=== PATIENT | male | born 1970 | race Caucasian/White ===

== ENCOUNTER 2020-11-18 16:17 | Emergency (ER) | payer OTHER, SELFPAY ==
--- NOTE | ~2020-11-18 | CT_ITS ---
EXAMINATION: CT abdomen pelvis w con DATE: 11/18/2020 21:15 INDICATION: Right flank and testicle pain. TECHNIQUE: Computed tomography (CT) of the abdomen and pelvis was performed with 100 cc Omnipaque 350 intravenous contrast. The dose-length product was 438.05 mGy-cm. Automated exposure control and iter ative reconstruction technique were employed. COMPARISON: None. FINDINGS: Lung bases are unremarkable. Heart size normal. No significant pleural or pericardial effus ion. No significant vascular abnormality. No lymphadenopathy. There is a distal right ureteral stone measuring 4 mm with mild right hydronephrosis. There is delayed right nephrogram, consistent with obs truction. Mild right perinephric stranding. The liver, spleen, pancreas and right adrenal gland are unremarkable. There is nonspecific left adren al thickening. There are several small subcentimeter low-density lesions of the left kidney, too smal l to characterize, although likely benign. Gallbladder is present. Nonobstructive bowel gas pattern. Colonic diverticulosis without evidence for diverticulitis. Enlarged prostate gland. There are hydroc eles. There is nonobstructing right nephrolithiasis. IMPRESSION: 1. Distal right ureteral stone just proximal to the ureterovesical junction measuring 4 mm. Mild righ t hydroureteronephrosis with delayed nephrogram, consistent with obstruction. 2: Right nephrolithiasis. Reviewed, dictated and finalized at location A. IMPRESSION: 1. Distal right ureteral stone just proximal to the ureterovesical junction uriah suring 4 mm. Mild right hydroureteronephrosis with delayed nephrogram, consiste nt with obstruction. 2: Right nephrolithiasis.
[2020-11-18 16:48] VITALS: BP 155/86; PULSE 63; RESP 18; TEMP 37.9; O2SAT 99
[2020-11-18 17:17] LABS: Basophils Percent Auto 0.1 % (0.2-1.2); Hematocrit 45.1 % (42.0-52.0); Hemoglobin 14.7 g/dL (14.0-18.0); Immature Granulocyte Absolute 0.06 K/mm3 (0.00-0.031); Immature Granulocyte Percent A 0.4 % (0-0.5); Lymphocytes Absolute Auto 0.97 K/mm3 (0.9-3.2); Lymphocytes Percent Auto 6.9 % (18.3-44.2); Mean Corpuscular HGB Conc 32.6 g/dl (32-36); Mean Corpuscular Hemoglobin 31.5 pg (26-34); Mean Corpuscular Volume 96.6 fl (80-100); Mean Platelet Volume 10.2 fl (7.4-10.4); Monocytes Absolute Auto 1.1 K/mm3 (0.1-0.6); Monocytes Percent Auto 7.7 % (2.6-8.5); Neutrophils Percent Auto 84.9 % (45.5-73.1); Platelet Count Result 216 k/mm3 (150-375); Red Blood Count 4.67 M/mm3 (4.6-6.20); Red Cell Distribution Width 12.1 % (11.5-14.5); White Blood Count 14.2 K/mm3 (4.5-10.0)
[2020-11-18 17:22] LABS: Add Urine Microscopic? YES; Appearance Urine Clear (Clear); Bilirubin Urine Negative (Negative); Blood Urine 2+ (Negative); Color Urine Yellow (Yellow); Glucose Urine UA Negative (Negative); Ketones Urine Trace mg/dL (Negative); Leukocyte Esterase Ur Negative LEU/UL (Negative); Mucus Urine Rare /lpf; Nitrate Urine Negative (Negative); Protein Urine 1+ mg/dL (Negative); RBC Urine 21-50 /hpf (0-2); Specific Grav Ur 1.029 (1.001-1.035); Squamous Epithelial Cell Urine Rare /hpf (Few); Urobilinogen Urine Negative mg/dL (<2.0)
[2020-11-18 17:28] LABS: Anion Gap 7 mmol/L (8-16); Blood Urea Nitrogen 15 mg/dL (9-20); Calcium 9.7 mg/dL (8.4-10.2); Carbon Dioxide 29 mmol/L (22-30); Chloride 103 mmol/L (98-107); Estimated CRCL calculation 62 ml/min; Estimated Glomerular Filt Rate 53; Glucose 114 mg/dL (75-110); Potassium 3.9 mmol/L (3.4-5.0); Sodium 139 mmol/L (137-145)
--- NOTE | 2020-11-18 18:26 | PC.NURSE ---
Patient came to desk and stated his pain was worse. Patient was pulled back to take vitals BP 132/84, 18R, 100% on RA, 60 heart rate. Advised patient that we would pull him back to a room as soon as we had one available.
[2020-11-18 20:47] VITALS: BP 186/98; PULSE 53; RESP 18; O2SAT 97
--- NOTE | 2020-11-18 20:47 | ED.ABDPAIN ---
HPI - Abdominal Pain General Chief Complaint: Abdominal Pain Stated Complaint: abd pain Time Seen by Provider: 11/18/20 20:28 Source: patient and RN notes reviewed Mode of arrival: ambulatory Limitations: no limitations History of Present Illness HPI narrative: Patient is 49 years old white male presents with right flank pain started yesterday associated with nausea and vomiting, today radiating to right lower quadrant. Patient denies any fever or chills. History of kidney stone. Related Data Home Medications Medication Instructions Recorded Confirmed pantoprazole 20 mg tablet,delayed 20 mg PO QAM 10/29/20 10/29/20 release Allergies Allergy/AdvReac Type Severity Reaction Status Date / Time No Known Allergies Allergy Mild Verified 11/18/20 21:05 NKFA Allergy Unknown Unknown Uncoded 10/29/20 15:13 Review of Systems Review of Systems: Narrative: CONSTITUTIONAL: Denies fever, chills, or sweats. EYES: Denies visual changes, redness, or discharge. ENT: Denies rhinorrhea, congestion, sore throat, or otalgia. CARDIOVASCULAR: Denies chest pain, palpitations, or edema. RESPIRATORY: Denies cough or dyspnea. GASTROINTESTINAL: Denies abdominal pain, nausea, vomiting, or diarrhea. GENITOURINARY: Denies dysuria or hematuria. SKIN: Denies rash or itching. MUSCULOSKELETAL: Denies back pain, joint pain, or myalgia. NEUROLOGIC: Denies headache, numbness, or weakness. PSYCHIATRIC: Denies anxiety or depression. [facility] Family History Family History Other Diabetes mellitus Social History Social History Smoking status: Never smoker Alcohol intake: never Substance use: never Gender identity (if verbalized by the patient): Male Exam Narrative: Exam Narrative: General appearance: Well-developed, well-nourished, patient looks in pain Skin: Normal color Head: Normocephalic, nontraumatic Eyes: Clear conjunctiva ENT: Oropharynx normal, ears normal, nose normal Neck: Supple, nontender Chest and respiratory: Airway patent, no respiratory distress, no accessory muscle use Heart: Regular rate/rhythm Abdomen: Soft, right flank tenderness, right lower quadrant tenderness s Vascular: Normal peripheral pulses, normal capillary refill. Musculoskeletal: Normal range of motion, nontender back Neurologic: Alert and oriented ?3, PRACTICING UROLOGIST is normal as tested, no gross motor deficit Course Course Emergency Course: Improving Vital Signs Vital signs: Vital Signs Temperature 37.9 C H 11/18/20 16:48 Pulse Rate 63 11/18/20 16:48 Respiratory Rate 18 11/18/20 16:48 Blood Pressure 155/86 H 11/18/20 16:48 Pulse Oximetry 99 11/18/20 16:48 Temperature 37.9 C H 11/18/20 16:48 Pulse Rate 68 11/18/20 21:31 Respiratory Rate 13 11/18/20 21:31 Blood Pressure 142/90 H 11/18/20 21:31 Pulse Oximetry 98 11/18/20 21:31 MDM - Abdominal Pain MDM Narrative Medical decision making narrative: Kidney stone versus appendicitis is my concern. Labs, IV fluids, CT abdomen pelvis with IV contrast ordered. IV Dilaudid, IV Toradol IV Zofran plus Flomax. Ordered Differential Diagnosis Differential diagnosis: Likely abdominal pain, acute appendicitis, calculus of kidney and diverticulitis Lab Data Result diagrams: 11/18/20 17:05 11/18/20 17:05 Labs: Lab Results 11/18/20 11/18/20 11/18/20 Range/Units 17:05 17:05 17:05 WBC 14.2 H (4.5-10.0) K/mm3 RBC 4.67 (4.6-6.20) M/mm3 Hgb 14.7 (14.0-18.0) g/dL Hct 45.1 (42.0-52.0) % MCV 96.6 (80-100) fl MCH 31.5 (26-34) pg MCHC 32.6 (32-36) g/
[2020-11-18] MEDS: ONDANSETRON INJ 4 MG/2 ML VIAL IV PUSH (20:59)
[2020-11-18] MEDS: TAMSULOSIN HCL 0.4 MG CAPSULE PO (21:00)
[2020-11-18] MEDS: KETOROLAC 30 MG/ML VIAL (*BKC) IV PUSH (21:00)
[2020-11-18] MEDS: HYDROmorphone HCL INJ (*CRX) 1 MG/ML SYR 0.5 MG IV PUSH (21:04)
[2020-11-18] MEDS: SODIUM CHLORIDE 0.9% IV 1,000 ML 999 ML IV CONT (21:07)
[2020-11-18 21:31] VITALS: BP 142/90; PULSE 68; RESP 13; O2SAT 98
[2020-11-18 22:14] VITALS: BP 145/82; PULSE 65; RESP 14; O2SAT 100
== END 2020-11-18 22:15 | disposition home or self-care (01) ==
PROVIDERS: Emergency Provider Emergency Medicine; PCP Emergency Medicine
DX: N13.2 Hydronephrosis with renal and ureteral calculous obstruction (principal)
CPT/HCPCS: 36415; 74177; 80048; 81001; 85025; 96361; 96374; 96375; 99284; A9270; J1170; J1885; J2405; J7030; Q9967

== ENCOUNTER → 2020-12-25 12:30 | Outpatient (CLI) | payer OTHER, SELFPAY ==
--- NOTE | ~2020-12-25 | XR_ITS ---
XR abdomen/kub 1V DATE: 12/25/2020 12:41 INDICATION: Right ureteral stone TECHNIQUE: AP projection, 2 views COMPARISON: 11/18/[address] abdomen pelvis FINDINGS: No calcified calculus is detected overlying the urinary tracts. Occasional calcified pelvic phleboliths. The psoas shadows are intact. No visceromegaly is evident. There is a moderately prominent amount fec al material in the rectum and colon. No bowel obstruction is detected. IMPRESSION: No calcified urinary tract calculus is evident Reviewed, dictated and finalized at [facility]. Reviewed, dictated and finalized at location A.
== END ==
PROVIDERS: PCP Emergency Medicine; Visit Provider Urology
DX: N20.1 Calculus of ureter (principal)
CPT/HCPCS: 74018

== ENCOUNTER 2020-12-26 02:18 | Day surgery (SDC) | payer OTHER, SELFPAY ==
[2020-12-17 11:54] VITALS: BMI 23.9
[2020-12-26 06:25] VITALS: BMI 23.2
[2020-12-26] MEDS: LACTATED RINGERS 1,000 ML 150 ML IV CONT (06:36)
[2020-12-26 06:38] VITALS: BP 118/89; PULSE 61; RESP 18; TEMP 36.2; O2SAT 97
--- NOTE | 2020-12-26 06:52 | WPDANESEPPF ---
Anes - Initial Pre Proc Eval Procedure: Operation Date: 12/26/20 07:30 Proposed Procedures p Esophagogastroduodenoscopy & Screening Colonoscopy - Amilcar Rogers MD Date/Time: 12/26/20 06:52 Surgeon: Amilcar Rogers MD Pre Op Diagnosis: dyspepsia, neoplasm, heartburn Patient Data Age: 50 Gender: M Height: 1.83 m Weight: 77.8 kg Last Vital Signs Temp 36.2 C L 12/26/20 06:38 Pulse 61 12/26/20 06:38 Resp 18 12/26/20 06:38 BP 118/89 12/26/20 06:38 Pulse Ox 97 12/26/20 06:38 Allergies Allergy/AdvReac Type Severity Reaction Status Date / Time No Known Allergies Allergy Mild Verified 12/26/20 06:23 Home Medications Medication Instructions Recorded Confirmed Type pantoprazole 20 mg tablet,delayed 20 mg PO QAM 10/29/20 12/26/20 History release tamsulosin [Flomax] 0.4 mg PO DAILY #10 cap 11/18/20 12/26/20 Rx Patient hx anesthesia problems: none Family hx anesthesia problems: none PMFSH Past Medical History Medical History Dyspepsia Hx of migraines Family History Family History Other Diabetes mellitus Social History Social History Smoking packs per day: 0.5 Smoking cigarettes per day: 10.0 Years smoked: 25 Smoking pack-years: 12.50 Smoking status: Never smoker Tobacco type: cigarettes Alcohol intake: never Drinks per week: 1 Substance use: never Living arrangements: alone Gender identity (if verbalized by the patient): Male Spiritual care concerns: No Anes - Eval Final PreProcedure Day of Procedure 12/26/20 06:52 Patient weight: normal Heart: regular rate and rhythm Lungs: clear to auscultation Airway: Mallampati scale class 1 Neurological: alert and oriented Last oral intake: >/= 8 hours ASA classification: II Emergent: no Anesthetic plan: proceed Anesthesia type and monitoring: general GIVS and standard monitoring Informed Consent: The patient's anesthetic plan and its attendant risks and benefits were discussed with the patient/family/POA. Questions were solicited and answers provided to the satisfaction of the patient/family/POA.
--- NOTE | 2020-12-26 07:23 | WPDGICN ---
Assessment and Plan Assessment and plan (1) Dyspepsia: Code(s): R10.13 - Epigastric pain Status: Acute Assessment and Plan: Patient has dyspepsia somewhat suspicious for acid reflux. Plan is for EGD. Maintain current dose of pantoprazole 40mg p.o. daily and anti-reflux measures until this can be accomplished. Further recommendations will be given after EGD. (2) Encounter for screening colonoscopy: Code(s): Z12.11 - Encounter for screening for malignant neoplasm of colon Status: Acute Assessment and Plan: Patient appears to be at average risk for colon polyps. Screening colonoscopy to be performed today. GI Consult Note Consult date/time: 12/26/20 07:23 HPI: Donte Stanford is a 50 year old male Presents for GI endoscopy. Patient has had heartburn. He has had occasional spasms causes chest shortly after eating. He has been placed on pantoprazole 40mg p.o. daily and notices things and diet have done well over the last 2 months. Denies any dysphagia. He has had no bleeding. He denies any weight loss. An EGD will be performed because of his significant heartburn and need for chronic medications. Additionally patient presents for neoplasia screening colonoscopy. He states his weight appetite bowel movements are normal. There is no reported family members with colon cancer. Patient denies any bleeding. His bowel habits are regular. Review of Systems Review of Systems: All systems reviewed & are unremarkable except as noted in HPI and below PMFSH Past Medical History Medical History (Updated 12/26/20 @ 07:25 by Amilcar Rogers MD) Dyspepsia Hx of migraines Family History Family History Other Diabetes mellitus Social History Social History Smoking packs per day: 0.5 Smoking cigarettes per day: 10.0 Years smoked: 25 Smoking pack-years: 12.50 Smoking status: Never smoker Tobacco type: cigarettes Alcohol intake: never Drinks per week: 1 Substance use: never Living arrangements: alone Gender identity (if verbalized by the patient): Male Spiritual care concerns: No Meds Home Medications and Allergies Home Medications Medication Instructions Recorded Confirmed Type pantoprazole 20 mg tablet,delayed 20 mg PO QAM 10/29/20 12/26/20 History release tamsulosin [Flomax] 0.4 mg PO DAILY #10 cap 11/18/20 12/26/20 Rx Allergies Allergy/AdvReac Type Severity Reaction Status Date / Time No Known Allergies Allergy Mild Verified 12/26/20 06:23 Vital Signs Vital Signs - 24 hr 12/26/20 06:38 Temperature 97.1 F L Pulse Rate 61 Respiratory Rate 18 Blood Pressure 118/89 Pulse Oximetry 97 Exam Narrative: Physical exam reveals patient to be alert. Vital signs stable. HEENT exam is unremarkable. Patient is anicteric. Lungs are clear to auscultation and percussion. Heart is without murmur or extra sounds. Abdominal exam bowel sounds are present soft nontender with no organomegaly. Digital external rectal exam is normal.
[2020-12-26] MEDS: BENZOCAINE (*SP) 60 ML SPRAY CAN (HURRICAINE) 1 SPRAY MUCOUS MEM (07:30)
[2020-12-26 07:55] VITALS: BP 108/75; PULSE 52; RESP 15; O2SAT 100
[2020-12-26 08:05] VITALS: BP 122/68; PULSE 45; RESP 17; O2SAT 94
[2020-12-26 08:15] VITALS: BP 124/62; PULSE 50; RESP 18; O2SAT 95
== END 2020-12-26 08:27 | disposition home or self-care (01) ==
PROVIDERS: PCP Emergency Medicine; Visit Provider Internal Medicine Gastroenterology
PROC: 0DJ08ZZ Inspection of Upper Intestinal Tract, Via Natural or Artificial Opening Endoscopic (ICD-10-PCS; CPT 43235; principal; 2020-12-26 07:30)
DX: Z12.11 Encounter for screening for malignant neoplasm of colon (principal); D12.0 Benign neoplasm of cecum; K63.5 Polyp of colon; R10.13 Epigastric pain; K57.30 Diverticulosis of large intestine without perforation or abscess without bleeding; K64.8 Other hemorrhoids
CPT/HCPCS: 45385; 43239; 87081; 88305; J7120

== ENCOUNTER 2021-01-20 09:14 | Outpatient (CLI) | payer OTHER, SELFPAY ==
--- NOTE | ~2021-01-20 | XR_ITS ---
EXAMINATION: XR abdomen/kub 1V INDICATION: Right ureteral stone TECHNIQUE: Supine views of the abdomen were obtained on 2 radiographs. COMPARISON: 12/25/2020 FINDINGS: No urolithiasis is identified. There is a phlebolith of left pelvis. The bowel gas pattern is normal. There is mild osteoarthritis of the hips. IMPRESSION: 1. No urolithiasis identified. Reviewed, dictated and finalized at location B.
== END 2021-01-20 09:15 | disposition home or self-care (01) ==
LOC: ANHIMG 09:19
PROVIDERS: PCP Emergency Medicine; Visit Provider Urology
DX: N20.1 Calculus of ureter (principal)
CPT/HCPCS: 74018

== ENCOUNTER 2021-02-25 16:06 | Outpatient (CLI) | payer OTHER, SELFPAY ==
--- NOTE | ~2021-02-25 | CT_ITS ---
EXAMINATION: CT abdomen pelvis wo con DATE: 02/25/2021 16:31 INDICATION: Right ureteral stone. TECHNIQUE: Computed tomography (CT) of the abdomen and pelvis was performed without intravenous contr ast. Automated exposure control and iterative reconstruction technique were employed. The dose-length product was 193.16 mGy-cm. COMPARISON: CT abdomen and pelvis 11/18/2020 FINDINGS: The visualized portions of the lung bases are clear without pneumonia or pleural effusion. The heart size is normal. No pericardial effusion. The liver, gallbladder, spleen, pancreas, and adre nal glands are normal. There are two 2-3 mm stones in right kidney. There is a 3 mm stone in left kid mahesh. There is diverticulosis of the colon without evidence of diverticulitis. There are no dilated lo ops of bowel. The appendix is normal. There are no pathologically enlarged lymph nodes. There is no f ree intraperitoneal fluid. There is moderate lumbar spondylosis. IMPRESSION: 1. Small bilateral nonobstructing kidney stones. Reviewed, dictated and finalized at location A.
== END 2021-02-25 16:07 | disposition home or self-care (01) ==
LOC: ANHIMG 16:11
PROVIDERS: PCP Emergency Medicine; Visit Provider Urology
DX: N20.0 Calculus of kidney (principal)
CPT/HCPCS: 74176

== ENCOUNTER 2022-01-08 10:36 | Emergency (ER) | payer OTHER, SELFPAY ==
--- NOTE | ~2022-01-08 | XR_ITS ---
EXAMINATION: XR lumbar spine 2-3V DATE: 01/08/2022 11:19 INDICATION: Low back pain. Fall. TECHNIQUE: 3 views of lumbar spine were obtained. COMPARISON: None. FINDINGS: There is 3 degrees dextrocurvature of lumbar spine. Vertebral body heights are normal. Ther e is mildly decreased disc height at L2-L3, L3-L4, and L4-L5. There is multilevel mild facet joint os teoarthritis. IMPRESSION: 1. Mild lumbar spondylosis. Reviewed, dictated and finalized at location A. IMPRESSION: 1. Mild lumbar spondylosis.
[2022-01-08 10:44] VITALS: BP 129/81; PULSE 58; RESP 16; TEMP 37.1; O2SAT 99
--- NOTE | 2022-01-08 10:52 | ED.BACK ---
HPI - Back Pain/Injury General Chief Complaint: Back Pain/Injury Stated Complaint: lower back pain Time Seen by Provider: 01/08/22 10:56 Source: patient and RN notes reviewed Mode of arrival: ambulatory Limitations: no limitations History of Present Illness HPI Narrative: 51 y/o male presented for c/o mid low back pain for 2 days. 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 Also carries heavy equipment for his job. States the pain has worsened for the 2 days and is now spreading across hips to thighs. States his legs feel weak and he has been holding on when he walks. Endorses pain is worse after sitting or walking for long periods. Denies numbness or tingling, loss of b/b, or saddle paresthesia. Today he has taken 1200mg of ibuprofen since this morning, has been using ice/heat, and took diazepam without change in pain. Related Data Home Medications Medication Instructions Recorded Confirmed pantoprazole 20 mg tablet,delayed 20 mg PO QAM 10/29/20 12/26/20 release mirabegron 25 mg tablet,extended 25 mg PO DIRECTED 01/08/22 01/08/22 release 24 hr (Myrbetriq) Allergies Allergy/AdvReac Type Severity Reaction Status Date / Time No Known Allergies Allergy Mild Verified 12/26/20 06:23 Review of Systems Review of Systems: CONSTITUTIONAL: Denies body aches, fever, chills, or sweats. CARDIOVASCULAR: Denies chest pain, palpitations, or edema. RESPIRATORY: Denies cough or dyspnea. GASTROINTESTINAL: Denies abdominal pain, nausea, vomiting, or diarrhea. GENITOURINARY: Denies dysuria or hematuria. SKIN: Denies rash, or wounds. MUSCULOSKELETAL: reports back pain NEUROLOGIC: denies headache, denies numbness, tingling All systems reviewed & are unremarkable except as noted in HPI and below PMFSH Past Medical History Medical History Dyspepsia Hx of migraines Family History Family History Other Diabetes mellitus Social History Social History Smoking packs per day: 0.5 Smoking cigarettes per day: 10.0 Years smoked: 25 Smoking pack-years: 12.50 Smoking status: Never smoker Tobacco type: cigarettes Alcohol intake: never Drinks per week: 1 Substance use: never Gender identity (if verbalized by the patient): Male Spiritual care concerns: No Comments At time of signature, I have reviewed and agree with nursing past medical, surgical, social and family history unless otherwise noted. Please see nursing chart for further information. There is no relevant family history pertinent to the presenting complaint Exam Narrative: GENERAL: appears in pain ENT: Mucous membranes pink and moist. CHEST: No respiratory distress. Clear to auscultation. HEART: Regular rate and rhythm. No murmur appreciated. Normal peripheral pulses. ABDOMEN: Soft, nontender, nondistended, normal active bowel sounds. MUSCULOSKELETAL: No vertebral point tenderness, He endorses paraspinal tenderness worse on left at L3-4-5 area. EXTREMITIES: Normal range of motion. No edema, ambulates with steady gait. SKIN: Warm, dry, no rash. Capillary refill normal. Normal skin turgor. NEURO:No focal deficits. Alert and oriented x3. Strength 5/5 bilateral lower extremities. Ambulatory exam with a normal based, steady gait. PSYCH: Normal affect. Course Course Emergency Course: Patient is aware of diagnosis, understands and agrees to treatment plan. Anticipatory guidance given. Patient agrees to follow-up as directed and is aware of reasons to seek care at the emergency department. Portions of this record may have been created with voice recognition software Level of Care: Express Care Visit Vital Signs Vital signs: Vital Signs Temperature 98.8 F 01/08/22 10:44 Pulse Ra
[2022-01-08] MEDS: TRIAMCINOLONE ACET INJ 40 MG/ML VIAL IM (11:20)
== END 2022-01-08 11:55 | disposition home or self-care (01) ==
PROVIDERS: Emergency Provider Nurse Practitioner Family
DX: M54.16 Radiculopathy, lumbar region (principal)
CPT/HCPCS: 72100; 96372; 99213; G0463; J3301

== ENCOUNTER 2024-07-26 00:52 | Day surgery (SDC) | payer OTHER, SELFPAY ==
[2024-07-20 10:05] VITALS: BMI 26.5
--- OUTSIDE RECORDS SUMMARY | 2024-07-26 00:54 | XMS_ITS | Data Portability ---
Author Organization [facility], Main Office Address [address] [place] [address] Care Team Providers Care Director Of Student Financial Aid Name Role Phone KENYA GALICIA Primary Care Provider KENYA GALICIA Referring Provider [phone] Assessment Encounter Date Assessment Date Assessment LastModified by Organization Details LastModified Time 08/17/2022 08/17/2022 51-year-old male about 9 weeks status post scaphoid excision 4 corner fusion of the right wrist on 06/09/2022. The patient is healing well and has been wearing his wrist brace. he may transition out of the wrist brace and wear it as needed for comfort. He will begin occupational therapy to help regain some of his motion. He will return in about 2 months and at that time we will obtain repeat x-rays. [email or web address] Not available 08/17/2022 12:29:45 Plan of Treatment Reminders Order Date Submit Date Provider Last Modified By Organization Details Last Modified Time Details Appointments None recorded. Lab None recorded. Referral occupation al therapist referral - ROM P-AA-A, MODALITIES 2022 023 [email or web address] [facility] [place], [address], [place], [address], 14:02:05 Procedures None recorded. Surgeries None recorded. Imaging XR, wrist, 3 or more view 2022 023 [email or web address] [facility] [place], [address], [place], [address], 3 10:38:42 XR, wrist, 3 or more view 2022 023 [email or web address] [facility], [address], [address], 12:30:46 XR, wrist 2022 023 [email or web address] [facility], [address], [address], 17:01:35 Medication Orders None recorded. Patient TargetsNo targets recorded. Patient InstructionsNo instructions recorded. Reason for Referral Occupational Therapist Refer ral for Arthritis of right wrist ROM P-AA-A, MODALITIES Referring Physician: Rhett Graham, Orthopedics, Encounter Date: 08/17/2022 Results Created Date Observation Date Name Description Value Unit Range Abnormal Flag Note LastModifiedBy Organization Detail LastModifiedTime 04/12/20 22 02/01/2022 XR, wrist , 3 or more view No observ ation record ed. [id number] Not Available 07/15/2022 01:48:21 07/28/19 23 XR, wrist No observ ation record ed. [email or web address] [facility] [address], [place], [address], 07/27/2022 17:01:34 08/18/19 23 XR, wrist , 3 or more view No observ ation record ed. [email or web address] [facility] [address], [address], 08/17/2022 12:31:16 10/20/19 23 XR, wrist , 3 or more view No observ ation record ed. [email or web address] [facility] [address], [address], 10/19/2022 10:33:59 Result Notes None recorded. Problems Name Problem SNOMED Code Status Onset Date Resolution Date Notes Provider Name and Address Organization Details Recorded Time Bilateral wrist pain 8080648103031 9105 Active 2021 Not Available [facility] 01:47:38 Pain of right wrist 1250188533782 00 Active 2022 Ya Gandara RMA null, [place] [facility] 3 14:44:55 Pain of left wrist 5280227944414 02 Active 2022 Ya Gandara RMA null, [place] [facility] 3 14:45:06 Arthritis of right wrist 1960066104072 103 Active 2022 Ya Gandara RMA null, [place] [facility] 3 14:45:14 Problem Notes None recorded. Procedures Surgical History Date Name Laterality Status Provider Name and Address Organization Details Recorded Time Hernia Surgery completed Not Available [facility] 07/15/2022 01:47:15 Imaging Results Imaging Date Name Status [facility] by [facility] Details LastModified Time 02/01/2022 XR, wrist, 3 or more view completed [id number] Information not available 07/15/2022 01:48:21 07/27/2022 XR, wrist completed [email or web address] [facility] [address], [place], [address], 07/27/2022 17:01:34 08/17/2022 XR, wrist, 3 or more view completed [email or web address] [facility] [address], [place], [address], 08/17/2022 12:31:16 10/19/2022 XR, wrist, 3 or more view completed [email or web address] [facility] [address], [place], [address], 10/19/2022 10:33:59 Procedure Notes None recorded. Medical Equipment None Reported. Medications Name Sig Start Date Stop Date Status Note LastModified by Organization Details LastModified Time methocarbamol 500 mg tablet active Not Available Not Available No t Available meloxicam 7.5 mg tablet active Not Available Not Available Not Available hydrocodone 7.5 mg-acetaminophen 325 mg tablet active Not Available Not Availabl e Not Available methylprednisolone 4 mg tablets in a dose pack active Not Available Not Available No t Available Myrbetriq 25 mg tablet,extended release active Not Available Not Available Not Available Vitals Date Recorded Body mass index (BMI) Body height Body weight Provider Name and Address Organization Details Last Updated DateTime 04/27/2022 24.4 kg/m2 182.88 cm 48095.63 g Not Available formerly [facility] 07/15/2022 01:47:30 Date Recorded Body mass index (BMI) Body height Pain severity - 0-10 verbal numeric rating [Score] - Reported Body weight Provider Name and Address Organization Details Last Updated DateTime 06/29/2022 24.4 kg/m2 182.88 cm 4 86269.63 g Not Available [facility] 07/15/2022 01:47:30 Date Recorded Body height Body mass index (BMI) Body weight Provider Name and Address Organization Details Last Updated DateTime 07/27/2022 182.88 cm 25.1 kg/m2 14124.59 g Ya Gandara [facility] [employer] 07/27/2022 14:44:17 Date Recorded Body height Body mass index (BMI) Body weight Provider Name and Address Organization Details Last Updated DateTime 08/17/2022 182.88 cm 24.4 kg/m2 81329.63 g Verenice Aranda [facility] [employer] [facility] [employer] 08/17/2022 11:43:48 Date Recorded Body height Body mass index (BMI) Body weight Provider Name and Address Organization Details Last Updated DateTime 10/19/2022 182.88 cm 24.4 kg/m2 71899.63 g Carmen Veronica [facility] [employer] 10/19/2022 09:48:43 Social History None recorded. Functional Status None recorded. Mental Status None recorded. Family History Relationship Description Onset Age of this Age Resolved Age Notes LastModified by Organization Details LastModified Time Father Heart disease [id number] Not available 07/15/2022 01:47:17 Father Hypertensive disorder [id number] Not available 07/15/2022 01:47:17 Mother Family history of stroke [id number] Not available 07/15/2022 01:47:17 Mother Hypertensive disorder [id number] Not available 07/15/2022 01:47:17 Maternal Grandfather Diabetes mellitus [id number] Not available 07/15/2022 01:47:17 Maternal Grandmother Diabetes mellitus [id number] Not available 07/15/2022 01:47:17 Medical History Condition Response URINARY/BLADDER/KIDNEY PROBLEMS Y Past Encounters Encounter ID Performer Location Encounter Start Date Encounter Closed Date Diagnosis/Indication Diagnosis SNOMED-CT Code Diagnosis ICD10 Code Diagnosis Note [id number] [facility] [address] [place] [address] 04/27/2022 00:00:00 04/27/2022 13:27:37 [id number] [facility] [address] [place] [address] 06/29/2022 00:00:00 06/29/2022 12:18:52 [id number] Jeremi Erazo MD [facility] [address] [place] [address] 07/27/2022 14:39:12 07/27/2022 15:44:51 Pain of right wrist 5852435062 93978 M25.531 Pain of left wrist 06050 31520 97050 M25.532 Arthritis of right wrist 1633444070 970696 M13.831 discontinu e the cast start gentle range of motion see him back in 3 weeks AP and lateral x-rays of the right wrist if he is a little stiff we will start therapy at that point [id number] CONOR Sherman [facility] [address] [place] [address] 08/17/2022 11:39:12 08/17/2022 12:17:03 Bilateral wrist pain 7093124251 5132562 M25.531 M25.532 Arthritis of right wrist 8697245096 327276 M13.831 [id number] Jeremi Erazo MD [facility] [address] [place] [address] 10/19/2022 09:42:57 10/19/2022 10:38:42 Pain of right wrist 9519866885 77447 M25.531 Arthritis of right wrist 5767486921 842858 M13.831 patient can be activity as tolerated. See Him back only if any problems arise. he has a good solid union between capitate lunate and hamate. Health Concerns Section Related Observation LastModified by Organization Detai ls LastModified Time None Recorded Concern Status LastModified by Organization Details LastModified Time None Recorded Advance Directives Directive None Recorded Payers Encounter Date Sequence Insurance Name Policy Number Policy Marley Covered Member ID Marley Member ID Guarantor Name 07/27/2022 1 [facility] [id number] Donte Stanford [id number] Donte Stanford 08/17/2022 1 [facility] [id number] Donte Stanford [id number] Donte Stanford 10/19/2022 1 [facility] [id number] Donte Stanford [id number] Donte Stanford Notes Date Note Type Note Provider Name and Address Organization Details Recorded Time 07/27/2022 text/html patient underwent scaphoid excision 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 He is doing well and has been wearing his brace. CONOR [place] [address], [place], [address], [employer] 08/17/2022 12:31:39 10/19/2022 text/html patient returns today for follow-up underwent a four-corner fusion 06/09/2022 doing well therapy helped quite a bit not having much pain anymore he notices each week or 2 things get better and better for him since the scaphoid excision and partial wrist fusion Jeremi Erazo MD [address] [facility], [facility] [address], [place], [address], [place] [facility] 10/19/2022 10:34:47
[2024-07-26 06:16] VITALS: BMI 25.9
[2024-07-26 06:19] VITALS: BP 115/82; PULSE 70; RESP 16; TEMP 36.3; O2SAT 96
[2024-07-26] MEDS: LACTATED RINGERS 1,000 ML 150 ML IV CONT (06:28)
--- NOTE | 2024-07-26 07:03 | P.PNAN_ITS ---
Anes - Initial Pre Proc Eval Procedure: Operation Date: 07/26/24 07:30 Proposed Procedures p Colonoscopy - Chris Fuentes MD Date/Time: 07/26/24 07:03 Surgeon: Chris Fuentes MD Pre Op Diagnosis: hx of colon polyps Patient Data Age: 53 Gender: M Height: 1.83 m Weight: 87 kg Last Vital Signs Temp 36.3 C L 07/26/24 06:19 Pulse 70 07/26/24 06:19 Resp 16 07/26/24 06:19 BP 115/82 07/26/24 06:19 Pulse Ox 96 07/26/24 06:19 O2 Del Method Room Air 07/26/24 06:19 Allergies Allergy/AdvReac Type Severity Reaction Status Date / Time No Known Allergies Allergy Mild Verified 07/26/24 06:15 Home Medications ?Medication ?Instructions ?Recorded ?Confirmed ?Type mirabegron 25 mg tablet,extended 25 mg PO DIRECTED 01/08/22 07/26/24 History release 24 hr (Myrbetriq) fluticasone propionate 93 1 spray intranasal BID 07/20/24 07/26/24 History mcg/actuation breath activated aerosol ibuprofen 200 mg capsule 600 mg PO Q6-8H PRN pain 07/20/24 07/20/24 History Patient hx anesthesia problems: none Family hx anesthesia problems: none Results Review: All pre-operative results and documents have been reviewed as part of the pre- operative evaluation. [facility] Past Medical History Medical History Left scapholunate ligament tear Right scapholunate ligament tear Hx of migraines Dyspepsia Surgical History Surgical History History of hernia surgery 2000 and 2010. Family History Family History Other Cerebrovascular accident Diabetes mellitus Social History Social History Smoking packs per day: 0.5 Smoking cigarettes per day: 10.0 Years smoked: 25 Smoking pack-years: 12.50 Smoking status: Former smoker Tobacco type: cigarettes Smoking end date: 05/16/16 Alcohol intake: current Drinks per week: 1 Substance use: never Living arrangements: with family Occupation/Education: occupation Gender identity (if verbalized by the patient): Male Spiritual care concerns: No Anes - Eval Final PreProcedure Day of Procedure 07/26/24 07:03 Patient weight: normal Heart: regular rate and rhythm Lungs: clear to auscultation Airway: Mallampati scale class II Neurological: alert and oriented Last oral intake: >/= 8 hours ASA classification: II Emergent: no Anesthetic plan: proceed Anesthesia type and monitoring: general GIVS and standard monitoring Results Review: All pre-operative results and documents have been reviewed as part of the pre- operative evaluation. Informed Consent: The patient's anesthetic plan and its attendant risks and benefits were discussed with the patient/family/POA. Questions were solicited and answers provided to the satisfaction of the patient/family/POA.
--- NOTE | 2024-07-26 07:30 | PM.HPGS ---
History of Present Illness History of Present Illness Consent: Risks, benefits, and alternatives have been discussed and questions answered. Patient agrees to proceed with procedure. Chief complaint: hx of colon polyps Narrative: Donte Stanford is a 53 year old male with colon polyps in 2020 Review of Systems Review of Systems: All systems reviewed & are unremarkable except as noted in HPI and below PMFSH Past Medical History Medical History (Updated 07/26/24 @ 07:31 by Chris Fuentes MD) Colon polyp Left scapholunate ligament tear Right scapholunate ligament tear Hx of migraines Dyspepsia Surgical History Surgical History History of hernia surgery 2000 and 2010. Family History Family History Other Cerebrovascular accident Diabetes mellitus Social History Social History Smoking packs per day: 0.5 Smoking cigarettes per day: 10.0 Years smoked: 25 Smoking pack-years: 12.50 Smoking status: Former smoker Tobacco type: cigarettes Smoking end date: 05/16/16 Alcohol intake: current Drinks per week: 1 Substance use: never Living arrangements: with family Occupation/Education: occupation Gender identity (if verbalized by the patient): Male Spiritual care concerns: No Meds Home Medications and Allergies Home Medications ?Medication ?Instructions ?Recorded ?Confirmed ?Type mirabegron 25 mg tablet,extended 25 mg PO DIRECTED 01/08/22 07/26/24 History release 24 hr (Myrbetriq) fluticasone propionate 93 1 spray intranasal BID 07/20/24 07/26/24 History mcg/actuation breath activated aerosol ibuprofen 200 mg capsule 600 mg PO Q6-8H PRN pain 07/20/24 07/20/24 History Allergies Allergy/AdvReac Type Severity Reaction Status Date / Time No Known Allergies Allergy Mild Verified 07/26/24 06:15 Vital Signs Vital Signs - 24 hr 07/26/24 06:19 Temperature 97.4 F L Pulse Rate 70 Respiratory Rate 16 Blood Pressure 115/82 Pulse Oximetry 96 Oxygen Delivery Room Air Exam Const: General: comfortable and no acute distress HENMT: Face/Nose/Sinus: Normal nares present Eyes: General: appearance normal, both eyes and all related structures Neck: Neck: no JVD Resp: Auscultation: clear to auscultation bilaterally Cardio: Rate: regular rate Rhythm: regular rhythm GI: Inspection: non-distended GI Palp: Yes Soft to palpation Skin: General skin exam: normal color Neuro: General: gait normal Speech: normal speech Extrem: General: normal to inspection Psych: Mental Status: mental status grossly normal Assessment and Plan Assessment and plan (1) Colon polyp: Code(s): K63.5 - Polyp of colon Status: Acute Assessment and Plan: colonoscopy
[2024-07-26 07:46] VITALS: BP 106/60; PULSE 55; RESP 16; O2SAT 97
[2024-07-26 07:56] VITALS: BP 112/72; PULSE 61; RESP 17; O2SAT 98
[2024-07-26 08:06] VITALS: BP 106/78; PULSE 60; RESP 20; O2SAT 97
== END 2024-07-26 08:15 | disposition home or self-care (01) ==
PROVIDERS: PCP Emergency Medicine; Referring Provider Emergency Medicine; Visit Provider Internal Medicine Gastroenterology
PROC: 0DJD8ZZ Inspection of Lower Intestinal Tract, Via Natural or Artificial Opening Endoscopic (ICD-10-PCS; CPT 45378; principal; 2024-07-26 07:30)
DX: Z12.11 Encounter for screening for malignant neoplasm of colon (principal); K64.8 Other hemorrhoids; K57.30 Diverticulosis of large intestine without perforation or abscess without bleeding; Z79.1 Long term (current) use of non-steroidal anti-inflammatories (NSAID); Z98.890 Other specified postprocedural states; Z86.0100 Personal history of colon polyps, unspecified; Z87.891 Personal history of nicotine dependence; Z82.49 Family history of ischemic heart disease and other diseases of the circulatory system
CPT/HCPCS: 45378; J2003; J2704; J7120